=== PATIENT | female | born 1950 | race Caucasian/White ===

== ENCOUNTER 2016-11-13 15:51 | Emergency (ER) | payer MEDICARE, BC ==
--- NOTE | ~2016-11-13 | EKG ---
PATIENT: IMELDA ULRICH UNIT #: [id number] Ventricular Rate: 61 BPM Atrial Rate: 61 BPM P-R Interval: 168 ms QRS Duration: 84 ms Q-T Interval: 454 ms QTC Calculation(Bezet): 457 ms P [place]: 28 degrees Calculated R [place]: 65 degrees Calculated T [place]: 55 degrees Diagnosis Line: Normal sinus rhythm Diagnosis Line: Normal ECG Diagnosis Line: Diagnosis Line: Confirmed by RONNA HANSEN MD ([id number]) on Diagnosis Line: 11/13/2016 4:16:55 PM INTERPRETING MD: JADE ALVARADO
[2016-11-13 15:10] LABS: URINE SOURCE CATH
[2016-11-13 15:21] LABS: BASOPHIL% 0.3 % (0-2.5); EOSINOPHIL# 0.1 X10e3 (0-0.7); EOSINOPHIL% 0.7 % (0.0-7.0); HEMATOCRIT 33.2 % (35.0-45.0); HEMOGLOBIN 11.1 gm/dL (12.0-16.0); LYMPHOCYTE# 1.8 X10e3 (1.0-3.5); LYMPHOCYTE% 21.4 % (17.0-45.0); MEAN CELL VOLUME 87.8 FL (83-96); MEAN CORPUSCULAR HEMOGLOBIN 29.3 PG (28-34); MEAN CORPUSCULAR HGB CONC 33.4 g/dL (30-36); MEAN PLATELET VOLUME 8.3 FL (6.5-11.5); MONOCYTE# 0.6 X10e3 (0-1.0); MONOCYTE% 7.4 % (3.0-12.0); NEUTROPHIL# 5.9 X10e3 (1.5-7.1); NEUTROPHIL% 70.2 % (40-75); PLATELET COUNT 196 X10e3 (140-420); RED BLOOD COUNT 3.79 X10e (3.90-5.30); RED CELL DISTRIBUTION WIDTH 14.4 % (11.0-15.5); WHITE BLOOD COUNT 8.4 X10e3 (4.0-10.5)
[2016-11-13 15:22] LABS: URINE APPEARANCE CLEAR; URINE BILIRUBIN NEG (NEG); URINE BLOOD NEG (NEG); URINE COLOR YELLOW; URINE GLUCOSE NEG (NEG); URINE KETONE NEG (NEG); URINE LEUKOCYTE ESTERASE NEG (NEG); URINE NITRATE NEG (NEG); URINE PROTEIN NEG (NEG); URINE SPECIFIC GRAVITY 1.008 (1.003-1.035); URINE UROBILINOGEN 0.2 MG/DL (NEG)
[2016-11-13 15:26] LABS: DIFF IND NO
[2016-11-13 15:27] LABS: CULTURE INDICATED? NO
[2016-11-13 15:34] LABS: POC - CKMB 1.9 ng/mL (0.0-7.9); POC - TROPONIN <0.05 ng/mL (<=0.05)
[2016-11-13 15:41] LABS: ALBUMIN SERUM 3.3 g/dL (3.5-5.0); ALKALINE PHOSPHATASE 53 U/L (32-92); ALT (SGPT) 25 U/L (10-40); AST (SGOT) 39 U/L (10-42); BILIRUBIN, DIRECT 0.1 mg/dL (0.0-0.2); BILIRUBIN,INDIRECT 0.7 mg/dL (0.0-0.9); BILIRUBIN,TOTAL 0.8 mg/dL (0.2-2.0); BLOOD UREA NITROGEN 11 mg/dL (9-23); BUN/CREATININE RATIO 12.22; CALCIUM SERUM 8.7 mg/dL (8.4-10.2); CARBON DIOXIDE 29 mmol/L (22-31); CHLORIDE 102 mmol/L (100-111); CREATININE SERUM 0.9 mg/dL (0.6-1.4); GLOM FILT RATE Estimated ABOVE60 mL/min (>60); GLUCOSE FASTING 75 mg/dL (70-110); PROTEIN TOTAL SERUM 6.5 g/dL (6.0-8.3); SODIUM 140 mmol/L (135-145)
[2016-11-13 15:50] LABS: THYROID STIMULATING HORMONE 0.66 uIU/ml (0.34-5.60)
[~2016-11-13 15:51] MED LIST: ALENDRONATE SOD70 M1 PO; ALLERGY10 M2 PO; ASPIR-TRIN325 MG PO; ASPIRIN PO; AZOR; CIPRO250 MG PO; CLARITIN10 MG PO; CLONAZEPAM0.5 MG PO; DEMADEX PO; DITROPAN5 MG PO; DSS100 MG PO; DURAGESIC75 MCG EXT; EFFEXOR XR PO; FISH OIL 1,0001 CA2 PO; FLEXERIL10 M1 PO; FLEXERIL10 MG PO; FLUOXETINE HCL20 M1 PO; GABAPENTIN300 M2 PO; HYDROCODONE/APA1 T16 PO; HYDROXYZINE HCL25 M1 PO; KLONOPIN1 MG PO; KLOR-CON PO; LASIX20 MG PO; LEVAQUIN PO; LIPITOR40 MG PO; LITE COAT ASPI325 M1 PO; LORTAB 10/500 T1 TAB; LORTAB 10/500 T1 TAB PO; METOPROLOL SUCC25 MG PO; OMEPRAZOLE20 M1 PO; OXYCODON HCL-1 UDTAB PO; POTASSIUM CHLO10 ME1 PO; PRILOSEC PO; PRILOSEC20 M1 PO; PROZAC PO; SELFEMRA20 MG PO; STOOL SOFTENER100 M1 PO; TIZANIDINE HCL2 MG PO; TOPAMAX PO; TOPAMAX200 MG PO; TOPIRAGEN200 MG PO; TOPROL XL PO; TOPROL XL50 MG PO; TOVIAZ8 MG PO; VITAMIN C1000 M2 PO; VITAMIN D1000 UNI1 PO; ZANTAC; ZYLOPRIM PO; ZYLOPRIM100 MG PO; ZYRTEC10 M3 PO; [UNRECOGNIZED DRUG - OTHER]
[2016-11-13 15:57] LABS: FREE THYROXIN (T4) 1.09 ng/dL (0.58-1.64)
== END 2016-11-13 17:45 | disposition home or self-care (01) ==
LOC: CED 15:51
PROVIDERS: Emergency Medicine
DX: R53.81 Other malaise (principal); R53.83 Other fatigue; Z88.0 Allergy status to penicillin; Z88.2 Allergy status to sulfonamides; Z88.7 Allergy status to serum and vaccine; Z88.1 Allergy status to other antibiotic agents; Z79.82 Long term (current) use of aspirin; Z79.899 Other long term (current) drug therapy
CPT/HCPCS: 36415; 80048; 80076; 81003; 82553; 84439; 84443; 84484; 85025; 93005; 96360; 99284